=== PATIENT | male | born 1980 | race Caucasian/White ===

== ENCOUNTER 2016-04-20 01:40 | Emergency (ER) | payer OTHER ==
--- NOTE | 2016-04-20 02:14 | ERRECORD ---
[facility] EMERGENCY RECORD KNOWN ALLERGIES ALLERGIES: (Unconfirmed) FOOD ALLERGIES: (Unconfirmed) LATEX ALLERGY? (Unconfirmed) No Known Allergies (Unconfirmed) No Known Drug Allergy None (Unconfirmed) CURRENT MEDICATIONS warfarin: TABLET : Strength - 10 mg : ORAL Patient Dose: 1 tab(s) Oral once a day (in the morning). (01:52 MCRS) verapamil: TABLET, EXTENDED RELEASE : Strength - 240 mg : ORAL Patient Dose: 1 tab(s) Oral once a day (in the morning). (01:53 MCRS) Adderall: TABLET : Strength - 30 mg : ORAL Patient Dose: 1 tab(s) Oral 2 times a day. (01:54 MCRS) Dilaudid: TABLET : Strength - 4 mg : ORAL Patient Dose: 4 mg Oral 4 times a day. (01:56 MCRS) ALPRAZolam: TABLET : Strength - 1 mg : ORAL Patient Dose: 1 mg Oral As Needed.BID PRN. (01:58 MCRS) VITAL SIGNS (01:48 MCRS) VITAL SIGNS: BP: 156/99 (Sitting), Pulse: 98, Resp: 24, Temp: 96.1 (Tympanic), Pain: 4 (Pressure), O2 sat: 97 on Room Air, Time: 04/20/2016 01:48. PROBLEM LIST No recorded problems DIAGNOSIS (02:08 AGAN) FINAL: PRIMARY: lwbs. PRESCRIPTION No recorded prescriptions DISPOSITION PATIENT: Disposition Type: Eloped, Disposition: Left Without Being Seen. (02:06 MCRS) Disposition Transport: Ambulatory. (02:08 AGAN) Patient left the department. (02:08 AGAN) Rogel: AGAN=SONNY Colbert, Cezar MCRS=SONNY River, Tony &a-1R&a+25V*p+0X*[id number]*c202B*c15G*c2P*p-0X&a-25V&a+1R Name: Danish Danielle : 1980 M35 MedRec: [id number] AcctNum: [id number] Prepared: [facility] Apr 20, 2016 02:12 by Interface Page 1 of 1 pMD MTDD
--- NOTE | 2016-04-20 02:20 | PICIS ---
[facility] EMERGENCY RECORD TRIAGE (:52 MCRS) PATIENT: NAME: Danish Danielle, AGE: 35, GENDER: male, : Sun1980, TIME OF GREET: SunApr 20, 2016 01:41, PREFERRED LANGUAGE: [place] Citizen, RACE: WHITE, ETHNICITY: Not or , FALL RISK: NO, ECODE BILLING MAP: [facility] ER, SSN: [id number], Zip Code: [address], KG WEIGHT: 68.95, PHONE: , , , PERSON ID: [id number], PCP: MD Larkin Grover. (01:52 MCRS) TRIAGE NOTES: STATED HE FEELS LIKE HIS BLOOD IS NOT GETTING TO HIS LEGS -STATED LEVEL 4 PAIN TO LEFT LEG- STATED HE FEELS STRESSED. (01:52 MCRS) COMPLAINT: HIGH BLOOD PRESSURE. (01:52 MCRS) ADMISSION: URGENCY: 4 Non Urgent, ADMISSION SOURCE: Home, TRANSPORT: CAR, BED: ED -03. (01:52 MCRS) PROVIDERS: TRIAGE NURSE: Tony River RN. (01:52 MCRS) VITAL SIGNS: BP 156/99, (Sitting), Pulse 98, Resp 24, Temp 96.1, (Tympanic), Pain 4, (Pressure), O2 Sat 97, on Room Air, Time 04/20/2016 01:48. (01:48 MCRS) KNOWN ALLERGIES ALLERGIES: (Unconfirmed) FOOD ALLERGIES: (Unconfirmed) LATEX ALLERGY? (Unconfirmed) No Known Allergies (Unconfirmed) No Known Drug Allergy None (Unconfirmed) CURRENT MEDICATIONS warfarin: TABLET : Strength - 10 mg : ORAL Patient Dose: 1 tab(s) Oral once a day (in the morning). (01:52 MCRS) verapamil: TABLET, EXTENDED RELEASE : Strength - 240 mg : ORAL Patient Dose: 1 tab(s) Oral once a day (in the morning). (01:53 MCRS) Adderall: TABLET : Strength - 30 mg : ORAL Patient Dose: 1 tab(s) Oral 2 times a day. (01:54 MCRS) Dilaudid: TABLET : Strength - 4 mg : ORAL Patient Dose: 4 mg Oral 4 times a day. (01:56 MCRS) ALPRAZolam: TABLET : Strength - 1 mg : ORAL Patient Dose: 1 mg Oral As Needed.BID PRN. (01:58 MCRS) VITAL SIGNS (01:48 MCRS) VITAL SIGNS: BP: 156/99 (Sitting), Pulse: 98, Resp: 24, Temp: 96.1 (Tympanic), Pain: 4 (Pressure), O2 sat: 97 on Room Air, Time: 04/20/2016 01:48. &a-1R&a+25V*p+0X*[id number]*c202B*c15G*c2P*p-0X&a-25V&a+1R Name: Danish Danielle : 1980 M35 MedRec: [id number] AcctNum: [id number] Prepared: SunApr 20, 2016 02:18 by Interface Page 1 of 2 pMD [facility] EMERGENCY RECORD EVENTS TRANSFER: Triage to Emergency Main ED -03. (SunApr 20, 2016 01:52 MCRS) Removed from Emergency Main ED -03. (02:08 AGAN) PROBLEM LIST No recorded problems DIAGNOSIS (02:08 AGAN) FINAL: PRIMARY: lwbs. DISPOSITION PATIENT: Disposition Type: Eloped, Disposition: Left Without Being Seen. (02:06 MCRS) Disposition Transport: Ambulatory. (02:08 AGAN) Patient left the department. (02:08 AGAN) PRESCRIPTION No recorded prescriptions Rogel: AGAN=SONNY Colbert, Cezar MCRS=SONNY River, Tony &a-1R&a+25V*p+0X*[id number]*c202B*c15G*c2P*p-0X&a-25V&a+1R Name: Danish Danielle Anthony : 1980 M35 MedRec: [id number] AcctNum: [id number] Prepared: SunApr 20, 2016 02:18 by Interface Page 2 of 2 pMD MTDD
== END 2016-04-20 02:08 | disposition left against medical advice (07) ==
LOC: MADERS 01:40
DX: Z53.21 Procedure and treatment not carried out due to patient leaving prior to being seen by health care provider (principal)

== ENCOUNTER 2018-03-21 22:16 | Emergency (ER) | payer OTHER ==
[2018-03-21 23:26] LABS: #Basophils 0.1 thou/uL (0.0-0.2); #Eosinphils 0.1 thou/uL (0.0-0.7); #Lymphocytes 1.4 thou/uL (1.20-3.40); #Neutrophils 8.4 thou/uL (1.40-6.50); %Eosinophils 1.3 % (0.0-10.0); %Lymphocytes 12.6 % (21.0-51.0); %Monocytes 8.8 % (0.0-10.0); %Neutrophils 76.3 % (42.0-75.0); Hemoglobin 11.3 g/dL (14.0-18.0); Mean Corpuscular HGB CONC 32.5 g/dL (32.0-36.0); Mean Corpuscular Hemoglobin 27.5 pg (27.0-31.0); Mean Corpuscular Volume 84.4 fL (78.0-98.0); Platelet Count 434 thou/uL (130-400); RBC Distribution Width 14.1 % (11.5-14.5)
[2018-03-21 23:34] LABS: INR-International Normal Ratio 2.1; Prothrombin Time 23.7 SEC (12.0-14.7)
[2018-03-21 23:40] LABS: Bilirubin Negative (Negative); Blood, Urine Trace (Negative); Clarity Clear (Clear); Glucose, Urine (Dipstick) Negative (Negative); Leukocyte Negative (Negative); Nitrite Negative (Negative); Protein, Urine (Dipstick) Negative (Neg-Trace); Urobilinogen 0.2 mg/dL (0.2-1.0); pH, Urine 5.5 (5.0-9.0)
[2018-03-21 23:44] LABS: Acetaminophen Less than 6.0 mcg/mL (10.0-30.0); Alcohol Less than 10 mg/dL (Less than 10); Salicylate Less than 8.0 mg/dL (15.0-30.0)
[2018-03-21 23:47] LABS: Bacteria/HPF None Seen HPF (None Seen); RBC/HPF 0-3 HPF (0-3); Squamous Epithelial None Seen HPF (0-3); WBC/HPF 0-3 HPF (0-3)
[2018-03-21 23:48] LABS: Amphetamine Detected (NotDetected); Cocaine Metabolite Screen Not Detected (NotDetected); Methamphetamine Not Detected (NotDetected); Phencyclidine (PCP) Not Detected (NotDetected); THC/Cannabinoid Screen Detected (NotDetected)
[2018-03-21 23:49] LABS: Barbiturates Screen Not Detected (NotDetected); Benzodiazepine Screen Not Detected (NotDetected); Medtox Control Line Valid? VALID (VALID); Methadone Not Detected (NotDetected); Opiate Screen Detected (NotDetected); Oxycodone Screen Not Detected (NotDetected); Tricyclic Screen Not Detected (NotDetected)
[2018-03-22 00:47] LABS: ALT (SGPT) 21 U/L (8-55); AST (SGOT) 29 U/L (5-34); Albumin 4.1 g/dL (3.5-5.0); Alkaline Phosphatase 79 U/L (40-150); Anion Gap 19 mmol/L (10-20); BUN (Urea Nitrogen) 12 mg/dL (8.9-20.6); Bilirubin, Total 0.2 mg/dL (0.2-1.2); CK (CPK) 55 U/L (30-200); Calc. Creatinine Clearance 0 mL/min (70-130); Calcium 9.6 mg/dL (7.8-10.44); Carbon Dioxide 21 mmol/L (22-29); Chloride 101 mmol/L (98-107); Estimated GFR-MDRD Greater than 90; Globulin 3.6 g/dL (2.4-3.5); Glucose 99 mg/dL (70-105); Potassium 3.8 mmol/L (3.5-5.1); Protein, Total 7.7 g/dL (6.0-8.3); Sodium 137 mmol/L (136-145)
[2018-03-22] MEDS ORDERED: Warfarin Sodium 5 MG TAB PO SCH (01:00)
== END 2018-03-22 00:58 | disposition home or self-care (01) ==
LOC: MADERS 22:16
DX: R20.2 Paresthesia of skin (principal); Z91.14 Patient's other noncompliance with medication regimen; I10 Essential (primary) hypertension; F41.9 Anxiety disorder, unspecified; Z79.01 Long term (current) use of anticoagulants; Z79.899 Other long term (current) drug therapy
CPT/HCPCS: 80053; 80306; 80307; 81003; 81015; 82550; 83605; 83735; 84443; 85025; 85610; 99284

== ENCOUNTER 2018-04-19 08:20 | Emergency (ER) | payer OTHER ==
[~2018-04-19 08:20] MED LIST: Sodium Chloride 0.9% 1,000 ML BAG ONE
[2018-04-19] MEDS ORDERED: Sodium Chloride 0.9% 100 ML ONE (08:39)
[2018-04-19] MEDS ORDERED: Pantoprazole 40 MG VIAL ONE (08:39)
[2018-04-19 08:48] LABS: Hemoglobin 6.4 g/dL (14.0-18.0); Mean Corpuscular HGB CONC 32.6 g/dL (32.0-36.0); Mean Corpuscular Hemoglobin 25.5 pg (27.0-31.0); Mean Corpuscular Volume 78.3 fL (78.0-98.0); Red Blood Cell (RBC) Count 2.49 mill/uL (4.70-6.10); White Blood Cell (WBC) Count 54.3 thou/uL (4.8-10.8)
[2018-04-19 08:49] LABS: Manual Diff?? YES; Mean Platelet Volume 9.7 fL (7.4-10.4); Platelet Count 214 thou/uL (130-400); RBC Distribution Width 14.3 % (11.5-14.5)
[2018-04-19] MEDS ORDERED: Lorazepam 2 MG/ML VIAL ONE (08:56)
[2018-04-19] MEDS ORDERED: Acetaminophen 650 MG Suppository ONE (08:58)
[2018-04-19 09:05] LABS: ALT (SGPT) 15 U/L (8-55); AST (SGOT) 27 U/L (5-34); Albumin 3.2 g/dL (3.5-5.0); Alkaline Phosphatase 155 U/L (40-150); Anion Gap 21 mmol/L (10-20); BUN (Urea Nitrogen) 36 mg/dL (8.9-20.6); Bilirubin, Total 1.1 mg/dL (0.2-1.2); Calc. Creatinine Clearance 0 mL/min (70-130); Calcium 9.6 mg/dL (7.8-10.44); Carbon Dioxide 18 mmol/L (22-29); Chloride 95 mmol/L (98-107); Estimated GFR-MDRD 57; Globulin 3.8 g/dL (2.4-3.5); Glucose 250 mg/dL (70-105); Potassium 4.5 mmol/L (3.5-5.1); Sodium 129 mmol/L (136-145)
[2018-04-19] MEDS ORDERED: Adenosine 6 MG/2 ML VIAL ONE (09:09)
[2018-04-19 09:10] LABS: Band 6 % (5-11); Lymphocytes 2 % (21-51); MDiff Complete? YES; Monocytes 3 % (0-10); Neutrophil 89 % (42-75); Platelet Morphology Comment Appears Adequate
[2018-04-19] MEDS ORDERED: cefTRIAXone\\ROCEPHIN 1 GM VIAL ONE (09:14)
[2018-04-19 09:25] LABS: PTT 239.6 SEC (22.9-36.1)
[2018-04-19 09:26] LABS: Prothrombin Time Greater than 150.0 SEC (12.0-14.7)
== END 2018-04-19 09:50 | disposition short-term general hospital (02) ==
LOC: MADERS 08:20
DX: K92.2 Gastrointestinal hemorrhage, unspecified (principal); R65.10 Systemic inflammatory response syndrome (SIRS) of non-infectious origin without acute organ dysfunction; R41.82 Altered mental status, unspecified; I95.9 Hypotension, unspecified; Z79.01 Long term (current) use of anticoagulants; I10 Essential (primary) hypertension; F41.9 Anxiety disorder, unspecified
CPT/HCPCS: 51702; 80053; 85025; 85060; 85610; 85730; 86850; 86900; 86901; 87040; 87077; 87149; 87186; 93005; 96365; 96375; 99292; C9113; J0153; J0696; J2060; J7050